=== PATIENT | female | born 1935 | race Native Hawaiian/Other Pacific Islander ===

== ENCOUNTER 2017-02-10 13:38 | Emergency (ER) | payer SELFPAY ==
[2017-02-10 13:45] VITALS: PULSE 66; RESP 16; TEMP 98; O2SAT 98
[2017-02-10 14:13] VITALS: BP 146/80
--- NOTE | 2017-02-10 14:48 | ED PDOC ---
HPI: Female Pain Time Seen by Provider: 02/10/17 13:40 Chief Complaint (Nursing): Female Genitourinary Chief Complaint (Provider): Female Genitourinary History Per: Patient History/Exam Limitations: no limitations Onset/Duration Of Symptoms: Days (x2) Current Symptoms Are (Timing): Still Present Additional Complaint(s): Kimberly Barber is an 81 year old female with a past medical history of hypertension who presents to the ED complaining of dysuria, urgency, and frequency x2 days. Patient states the her symptoms began last night, but denies any pain when not attempting to urinate. Also denies fever, vomiting, and diarrhea. PMD: Shauna Singh Past Medical History Reviewed: Historical Data, Nursing Documentation, Vital Signs Vital Signs: Last Vital Signs Temp 98.0 F 02/10/17 13:42 Pulse 66 02/10/17 13:42 Resp 16 02/10/17 13:42 BP 146/80 02/10/17 14:12 Pulse Ox 98 02/10/17 13:42 - Medical History PMH: HTN, Hypercholesterolemia, Hyperlipidemia Denies: HIV, Chronic Kidney Disease - Surgical History Surgical History: No Surg Hx - Family History Family History: States: Unknown Family Hx - Social History Current smoker - smoking cessation education provided: No Ex-Smoker (has not smoked in the last 12 months): No Alcohol: None Drugs: Denies - Home Medications Home Medications: Ambulatory Orders Medication Instructions Recorded Calcium Carbonate [Calcium] 500 mg PO BID 01/31/16 Cholecalciferol (Vitamin D3) 1,000 units PO BID 01/31/16 [Vitamin D3] Pravastatin Sodium [Pravastatin 40 mg PO HS 01/31/16 Sodium] Carvedilol [Coreg] 6.25 mg PO Q12 #60 tab 02/02/16 Lisinopril [Prinivil] 20 mg PO DAILY #30 tablet 02/02/16 hydroCHLOROthiazide [Microzide] 12.5 mg PO DAILY #30 cap 02/02/16 Ciprofloxacin HCl [Cipro] 500 mg PO BID #14 tab 02/10/17 - Allergies Allergies/Adverse Reactions: Allergies Allergy/AdvReac Type Severity Reaction Status Date / Time Sulfa (Sulfonamide Allergy ANGIOEDEMA Verified 02/01/16 06:48 Antibiotics) Review of Systems ROS Statement: Except As Marked, All Systems Reviewed And Found Negative Constitutional: Negative for: Fever Gastrointestinal: Negative for: Vomiting, Diarrhea Genitourinary Female: Positive for: Dysuria, Frequency, Other (Urgency) Physical Exam - Reviewed Nursing Documentation Reviewed: Yes - Physical Exam Appears: Positive for: Well, Non-toxic, No Acute Distress Cardiovascular/Chest: Positive for: Regular Rate, Rhythm. Negative for: Murmur Respiratory: Positive for: Normal Breath Sounds. Negative for: Respiratory Distress Gastrointestinal/Abdominal: Positive for: Normal Exam, Bowel Sounds, Soft. Negative for: Tenderness, Guarding, Rebound Extremity: Positive for: Normal ROM Neurologic/Psych: Positive for: Alert, Oriented (x3) - ECG O2 Sat by Pulse Oximetry: 98 (RA) Pulse Ox Interpretation: Normal Medical Decision Making Medical Decision Making: Time: 14:10 Initial Impression: Rule out UTI Plan: --Urine Culture --Urinalysis --Reevaluation pt iwth UTI pt declined pain med dc with abx and follow up Scribe Attestation: Documented by Nael Pringle acting as a scribe for Mahamed Collado MD. Scribe Attestation: All medical record entries made by the Scribe were at my direction and personally dictated by me. I have reviewed the chart and agree that the record accurately reflects my personal performance of the history, physical exam, medical decision making, and the department course for this patient. I have also personally directed, reviewed, and agree with the discharge instructions and disposition. Disposition - Clinical Impression Clinical Impression: Genitourinary Pain, UTI (urinary tract infection) - Patient ED Disposition Is Patient to be Admitted: No Counseled Patient/Family Regarding: Studies Performed, Diagnosis, Need For Followup - Disposition Referrals: [facility] [Outside] [facility] [Outside] Disposition: Routine/Home Disposition Time: 14:30 Condition: IMPROVED Additional Instructions: follow up with your primary doctor in 1-2 days return to the ED with any worsening or concerning symptoms Prescriptions: Ciprofloxacin HCl [Cipro] 500 mg PO BID #14 tab Instructions: Urinary Tract Infection in Women (ED) Forms: [facility] (Spanish)
[2017-02-10 15:37] LABS: RBC URINE 340 /hpf (0-3); URINE BACTERIA MOD (<OCC); URINE BILIRUBIN NEGATIVE (NEGATIVE); URINE BLOOD LARGE (NEGATIVE); URINE COLOR AMBER (YELLOW); URINE GLUCOSE (UA) NEG (Normal); URINE KETONE NEGATIVE (NEGATIVE); URINE LEUKOCYTE ESTERASE LARGE Leu/uL (Negative); URINE PROTEIN 100 mg/dL (NEGATIVE); URINE UROBILINOGEN 0.2-1.0 mg/dL (0.2-1.0); WBC URINE 209 /hpf (0-5)
== END 2017-02-10 16:41 | disposition home or self-care (01) ==
LOC: H.ER 13:38
DX: N39.0 Urinary tract infection, site not specified (principal); I10 Essential (primary) hypertension; E78.00 Pure hypercholesterolemia, unspecified; Z87.891 Personal history of nicotine dependence

== ENCOUNTER 2018-02-19 14:42 | Emergency (ER) | payer SELFPAY ==
[2018-02-19 14:46] VITALS: RESP 16; O2SAT 96; BMI 25.6
--- NOTE | 2018-02-19 15:36 | ED PDOC ---
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 She admits that while she was visiting her daughter's home for three days, she did not bring any of her medications, and tried to take her daughter's htn medication. Denies knowing the name of any medications mentioned. She notes she restarted her own medications yesterday, however woke up this morning with persistent dizziness described as sometimes just light headedness, and sometime vertiginous. Patient is saying she just feels "very foggy." Additionally, she is reporting nausea, but denies any vomiting, focal weakness, headache, and blurry vision. PMD: Dr. Singh Past Medical History Reviewed: Historical Data, Nursing Documentation, Vital Signs Vital Signs: Last Vital Signs Temp 97.6 F 02/19/18 14:46 Pulse 67 02/19/18 14:46 Resp 16 02/19/18 14:46 BP 157/78 H 02/19/18 14:46 Pulse Ox 96 02/19/18 14:46 - Medical History PMH: Deep Vein Thrombosis (right leg), HTN, Hypercholesterolemia, Hyperlipidemia Denies: HIV, Chronic Kidney Disease - Surgical History Surgical History: No Surg Hx - Family History Family History: States: Hypertension - Social History Current smoker - smoking cessation education provided: No Alcohol: None Drugs: Denies - Home Medications Home Medications: Ambulatory Orders Medication Instructions Recorded Calcium Carbonate [Calcium] 500 mg PO BID 01/31/16 Cholecalciferol (Vitamin D3) 1,000 units PO BID 01/31/16 [Vitamin D3] Pravastatin Sodium 40 mg PO HS 01/31/16 RX: Carvedilol [Coreg] 6.25 mg PO Q12 #60 tab 02/02/16 RX: Lisinopril [Prinivil] 20 mg PO DAILY #30 tablet 02/02/16 RX: hydroCHLOROthiazide [Microzide] 12.5 mg PO DAILY #30 cap 02/02/16 Ciprofloxacin HCl [Cipro] 500 mg PO BID #14 tab 02/10/17 Ondansetron ODT [Zofran ODT] 1 odt PO Q6 PRN #20 odt 02/19/18 RX: Meclizine HCl 50 mg PO BID PRN #30 tablet 02/19/18 - Allergies Allergies/Adverse Reactions: Allergies Allergy/AdvReac Type Severity Reaction Status Date / Time Sulfa (Sulfonamide Allergy ANGIOEDEMA Verified 02/01/16 06:48 Antibiotics) Review of Systems ROS Statement: Except As Marked, All Systems Reviewed And Found Negative (as per HPI) Eyes: Negative for: Vision Change Cardiovascular: Positive for: Light Headedness Gastrointestinal: Positive for: Nausea. Negative for: Vomiting Neurological: Positive for: Dizziness. Negative for: Weakness (focal), Headache Physical Exam - Reviewed Nursing Documentation Reviewed: Yes Vital Signs Reviewed: Yes - Physical Exam Appears: Positive for: Well, No Acute Distress Head Exam: Positive for: ATRAUMATIC, NORMOCEPHALIC Skin: Positive for: Warm, Dry Eye Exam: Positive for: Normal appearance, EOMI, PERRL. Negative for: Nystagmus ENT: Negative for: Pharyngeal Erythema, Tonsillar Exudate Neck: Positive for: Painless ROM, Supple Cardiovascular/Chest: Positive for: Regular Rate, Rhythm. Negative for: Murmur Respiratory: Positive for: Normal Breath Sounds. Negative for: Respiratory Distress Gastrointestinal/Abdominal: Positive for: Soft. Negative for: Tenderness Back: Positive for: Normal Inspection. Negative for: Muscle Spasm Extremity: Positive for: Normal ROM. Negative for: Deformity Lymphatic: Negative for: Adenopathy Neurologic/Psych: Positive for: Alert, it applications manager II-XII (grossly intact), Oriented (x3), Cerebellar Tests (normal), Other (normal speech). Negative for: Motor/Sensory Deficits - Laboratory Results Result Diagrams: 02/19/18 15:30 02/19/18 15:30 - ECG O2 Sat by Pulse Oximetry: 96 (RA) Pulse Ox Interpretation: Normal Medical Decision Making Medical Decision Making: Time: 1523 Initial Impression: dizziness and hypertension Initial Plan: --Type and screen --CT head without contrast --EKG --BNP --CMP --Lact acid --Magnesium and phosphorus --Trop I --CBC with differential --PT / PTT --CXR --Meclizine 50mg PO --Placed on court recording monitor --Urinalysis 1653 CT Head FINDINGS: HEMORRHAGE: No intracranial hemorrhage. BRAIN: Mild diffuse and confluent chronic periventricular white matter ischemic changes seen extending peripherally into the deep white matter both cerebral hemispheres. No evidence of large acute infarct so far as can be seen on this exam. Note that the possibility of a small hyperacute infarct cannot be completely excluded. Clinical correlation recommended. Moderate to fairly significant generalized volume loss. No obvious parenchymal nor extra-axial masses or collections seen on this noncontrast study. Mild vascular calcifications both carotid siphons VENTRICLES: No obstructive hydrocephalus. CALVARIUM: Calvarium grossly intact PARANASAL SINUSES: The frontal sinuses are underpneumatized/hypoplastic. Incidental note made rhinoplasty changes (flat nose). MASTOID AIR CELLS: Unremarkable as visualized. No inflammatory changes. OTHER FINDINGS: Changes of right-sided cataract surgery. IMPRESSION: No acute intracranial hemorrhage. Mild chronic white matter ischemic changes. Moderate to fairly significant generalized volume loss. 1700 CXR FINDINGS: LUNGS: Suspect minor bibasilar atelectasis or scarring.. PLEURA: No significant pleural effusion identified, no pneumothorax apparent. CARDIOVASCULAR: Aorta ectatic and uncoiled. Mild aortic atherosclerotic calcification present. Cardiomegaly.. No pulmonary vascular congestion. OSSEOUS STRUCTURES: No significant abnormalities. VISUALIZED UPPER ABDOMEN: Normal. OTHER FINDINGS: None. IMPRESSION: Suspect minor bibasilar atelectasis or scarring. Name: GWEN COTA Exam Date: Feb 19, 2018 6:32:48 PM EST Modality Type: CT Description: CTA NECK, CTA BRAIN AND MODOC OF GRAY Gender: F Laterality: Not applicable : 35 Referring Physician: Emergency Room direct number EXAM: CTA Head and Neck with Intravenous Contrast. CLINICAL HISTORY: INTRACTABLE DIZZINESS TECHNIQUE: Axial CTA images of the head and neck performed with intravenous contrast. MIP reconstructed images were created and reviewed. 390.90 mGy-cm CONTRAST: With; [id number] 90ML was injected intravenously without incident. COMPARISON: None provided. FINDINGS: VASCULATURE: NECK: COMMON CAROTID ARTERIES No significant canal stenosis. No dissection or occlusion. EXTERNAL CAROTID ARTERIES Patent. NECK: INTERNAL CAROTID ARTERIES No stenosis by NASCET criteria. No dissection or occlusion. VERTEBRAL ARTERIES No significant canal stenosis. No dissection or occlusion. HEAD: ANTERIOR CEREBRAL ARTERIES No significant stenosis. No occlusion. No aneurysm. MIDDLE CEREBRAL ARTERIES No significant stenosis. No occlusion. No aneurysm. POSTERIOR CEREBRAL ARTERIES No significant stenosis. No occlusion. No aneurysm. BASILAR ARTERY No significant stenosis. No occlusion. No aneurysm. OTHER: SOFT TISSUES No acute finding. BONES No acute osseous abnormality. IMPRESSION: Unremarkable CTA of the head and neck. Electronically signed on Feb 19, 2018 7:51:01 PM EST by: Sridhar Lucas M.D., MBA Certified By [employer] & [employer] Fellowship Trained MRI and CT Specialist --- Extensive workup in ER performed to rule out immediately or urgently life- threatening causes of patient's dizziness in ER. Pt remained stable during stay. At this time, pt is stable for further evaluation as outpatient. DW pt findings and plan of care. Scribe Attestation: Documented by Aby Gorman, acting as a scribe for Sena Bonilla MD. Provider Scribe Attestation: All medical record entries made by the Scribe were at my direction and personally dictated by me. I have reviewed the chart and agree that the record accurately reflects my personal performance of the history, physical exam, medical decision making, and the department course for this patient. I have also personally directed, reviewed, and agree with the discharge instructions and disposition. Disposition - Clinical Impression Clinical Impression: Vertigo Counseled Patient/Family Regarding: Studies Performed, Diagnosis, Need For Followup, Rx Given - Disposition Referrals: Shauna Singh MD [Family Provider] - (PLEASE FOLLOW UP WITH YOUR DOCTOR TOMORROW FOR FURTHER EVALUATION) Disposition: Routine/Home Disposition Time: 20:06 Condition: STABLE Prescriptions: RX: Meclizine HCl 50 mg PO BID PRN #30 tablet PRN Reason: Dizziness Ondansetron ODT [Zofran ODT] 1 odt PO Q6 PRN #20 odt PRN Reason: Nausea/Vomiting Instructions: Vertigo (a Type of Dizziness) (DC)
[2018-02-19 16:02] LABS: BASO # 0.1 K/uL (0.0-0.2); BASO % 1.2 % (0.0-2.0); EOS # 0.2 K/uL (0.0-0.7); EOS % 4.1 % (0.0-4.0); HEMOGLOBIN 11.5 g/dL (12.0-16.0); LYMPH # 0.8 K/uL (1.0-4.3); LYMPH % 18.7 % (20.0-40.0); MEAN CELL VOLUME 94.2 fl (81.0-99.0); MEAN CORPUSCULAR HEMOGLOBIN 31.4 pg (27.0-31.0); MEAN CORPUSCULAR HGB CONC 33.3 g/dL (33.0-37.0); MEAN PLATELET VOLUME 7.7 fl (7.2-11.7); MONO # 0.4 K/uL (0.0-0.8); MONO % 8.5 % (0.0-10.0); NEUT # 2.9 K/uL (1.8-7.0); NEUT % 67.5 % (50.0-75.0); NRBC % 0.1 % (0.0-0.0); RBC 3.67 Mil/uL (3.80-5.20); RED CELL DISTRIBUTION WIDTH 13.5 % (11.5-14.5); WHITE BLOOD COUNT 4.4 K/uL (4.8-10.8)
[2018-02-19 16:11] LABS: INR 1.2; PROTHROMBIN TIME 13.7 Seconds (9.8-13.1)
[2018-02-19 16:14] LABS: PARTIAL THROMBOPLASTIN TIME 30.6 Seconds (25.6-37.1)
[2018-02-19 16:22] LABS: ALB/GLOB RATIO 1.2 (1.0-2.1); ALBUMIN 4.1 g/dL (3.5-5.0); ALT/SGPT 30 U/L (9-52); AST/SGOT 27 U/L (14-36); BLOOD UREA NITROGEN 24 mg/dl (7-17); CALCIUM 9.6 mg/dL (8.4-10.2); GFR NON-AFRICAN AMERICAN 53
[2018-02-19 16:35] LABS: B-TYPE NATRIURETIC PEPTIDE 275 pg/ml (0-900)
--- NOTE | 2018-02-19 16:57 | CT ---
Date of service: 02/19/2018 PROCEDURE: CT HEAD WITHOUT CONTRAST. HISTORY: dizziness hypertension COMPARISON: The no prior study available for comparison. TECHNIQUE: Axial computed tomography images were obtained through the head/brain without intravenous contrast. Radiation dose: Total exam DLP = 804.15 mGy-cm. This CT exam was performed using one or more of the following dose reduction techniques: Automated exposure control, adjustment of the mA and/or kV according to patient size, and/or use of iterative reconstruction technique. FINDINGS: HEMORRHAGE: No intracranial hemorrhage. BRAIN: Mild diffuse and confluent chronic periventricular white matter ischemic changes seen extending peripherally into the deep white matter both cerebral hemispheres. No evidence of large acute infarct so far as can be seen on this exam. Note that the possibility of a small hyperacute infarct cannot be completely excluded. Clinical correlation recommended. Moderate to fairly significant generalized volume loss. No obvious parenchymal nor extra-axial masses or collections seen on this noncontrast study. Mild vascular calcifications both carotid siphons VENTRICLES: No obstructive hydrocephalus. CALVARIUM: Calvarium grossly intact PARANASAL SINUSES: The frontal sinuses are underpneumatized/hypoplastic. Incidental note made rhinoplasty changes (flat nose). MASTOID AIR CELLS: Unremarkable as visualized. No inflammatory changes. OTHER FINDINGS: Changes of right-sided cataract surgery. IMPRESSION: No acute intracranial hemorrhage. Mild chronic white matter ischemic changes. Moderate to fairly significant generalized volume loss.
--- NOTE | 2018-02-19 17:08 | RAD ---
Date of service: 02/19/2018 HISTORY: Dizziness COMPARISON: Comparison made with prior chest radiograph dated 01/29/2016. FINDINGS: LUNGS: Suspect minor bibasilar atelectasis or scarring.. PLEURA: No significant pleural effusion identified, no pneumothorax apparent. CARDIOVASCULAR: Aorta ectatic and uncoiled. Mild aortic atherosclerotic calcification present. Cardiomegaly.. No pulmonary vascular congestion. OSSEOUS STRUCTURES: No significant abnormalities. VISUALIZED UPPER ABDOMEN: Normal. OTHER FINDINGS: None. IMPRESSION: Suspect minor bibasilar atelectasis or scarring.
--- NOTE | 2018-02-19 17:25 | US ---
Date of service: 02/19/2018 PROCEDURE: Bilateral lower extremity venous duplex Doppler. HISTORY: leg swelling h/o dvt COMPARISON: None available. TECHNIQUE: Bilateral common femoral, superficial femoral, popliteal and posterior tibial veins were evaluated. Flow was assessed with color Doppler, compressibility, assessment of phasic flow and augmentation response. FINDINGS: COMMON FEMORAL VEIN: Right CFV: Unremarkable. Left CFV: Unremarkable. SUPERFICIAL FEMORAL VEIN: Right SFV: Unremarkable. Left SFV: Unremarkable. POPLITEAL VEIN: Right Popliteal: Unremarkable. Left Popliteal: Unremarkable. POSTERIOR TIBIAL VEIN: Right PTV: Unremarkable. Left PTV: Unremarkable. OTHER FINDINGS: None. IMPRESSION: No evidence of deep venous thrombosis.
[2018-02-19 17:43] LABS: URINE BILIRUBIN NEGATIVE (NEGATIVE); URINE BLOOD SMALL (NEGATIVE); URINE CLARITY CLEAR (Clear); URINE COLOR STRAW (YELLOW); URINE GLUCOSE (UA) NEG (NEGATIVE); URINE LEUKOCYTE ESTERASE NEG Leu/uL (Negative); URINE PROTEIN NEGATIVE (NEGATIVE); URINE UROBILINOGEN 0.2-1.0 mg/dL (0.2-1.0)
[2018-02-19] MEDS ORDERED: Iodixanol 320 MG/ML 100 ML BOTTLE IV ONE (18:29)
[2018-02-19] MEDS ORDERED: Sodium Chloride 0.9% 50 ML IV ONE (18:29)
--- NOTE | 2018-02-19 20:36 | CARD ---
APPROVED REPORT Date of service: 02/19/2018 EKG Measurement Heart [id number] <Conclusion> Sinus bradycardia Anteroseptal infarct, age undetermined Abnormal ECG
[2018-02-19 21:22] VITALS: BP 154/81; PULSE 64; TEMP 98.6
--- NOTE | 2018-02-20 13:11 | CT ---
Date of service: 02/19/2018 PROCEDURE: CT Angiography of the neck and brain HISTORY: i intractable dizziness COMPARISON: None. TECHNIQUE: Contiguous axial images of the neck and brain were obtained from the level of the vertex of the skull to the superior mediastinum in the arteriographic phase of enhancement. Coronal and sagittal reformats or also generated. IV contrast dose: 90 cc Visipaque 320 Radiation dose: Total exam DLP = 390.9 mGy-cm. This CT exam was performed using one or more of the following dose reduction techniques: Automated exposure control, adjustment of the mA and/or kV according to patient size, and/or use of iterative reconstruction technique. FINDINGS: There are mild partially calcified atherosclerotic plaque changes seen along the thoracic aorta as well as at the origins of the great vessels. Both common carotid arteries are widely patent. Note that mid common carotid arteries both exhibit short retropharyngeal course. There are partially calcified atherosclerotic plaque changes also noted at both carotid bifurcations however no no evidence of occlusion significant stenosis or dissection. The distal internal carotid arteries including the petrous cavernous and supraclinoid segments are patent however there are partially calcified atherosclerotic plaque changes noted at the levels of both carotid siphons. The vertebral arteries are patent throughout left-sided which is slightly larger in caliber/more dominant than the right-side. The basilar artery is diminutive though patent. The visualized major branches of the [id number] are patent. Distal branches of the anterior middle and posterior arteries are patent and relatively symmetric as well. No definitive evidence of large aneurysm nor vascular malformation. OTHER FINDINGS: Note is made of an elliptical shaped approximately 16 mm x 12 mm low-attenuation lesion left lobe thyroid gland for which thyroid ultrasound follow-up recommended. There also appears to be a small curvilinear calcification along the inferior margin of the left lobe of the thyroid gland as well. Mild multilevel degenerative spondylosis of the cervical spine. IMPRESSION: There is mild calcified atherosclerotic plaque both carotid bifurcations without occlusion, significant stenosis or dissection. Both common carotid arteries also exhibit short retropharyngeal course. Mild calcified atherosclerotic plaque both carotid siphons. No evidence of occlusion of the is intra cerebral vasculature. No evidence of large aneurysm nor vascular malformation.
== END 2018-02-19 20:15 | disposition home or self-care (01) ==
LOC: H.ER 14:42
DX: R42 Dizziness and giddiness (principal); I10 Essential (primary) hypertension; Z79.899 Other long term (current) drug therapy; Z86.718 Personal history of other venous thrombosis and embolism
CPT/HCPCS: 70450; 70496; 70498; 71045; 80053; 81003; 83605; 83735; 83880; 84100; 84484; 85025; 85610; 85730; 86850; 86900; 93005; 93970; 99285; Q9967